=== PATIENT | female | born 1950 ===

== ENCOUNTER 2016-12-23 09:20 | Emergency (ER) | payer MEDICARE ==
[2016-12-23 09:30] VITALS: BP 127/64; RESP 17; TEMP 98.4; O2SAT 100; BMI 31.1
[2016-12-23] MEDS ORDERED: HYDROmorphone 0.5 mg/0.5 ml ISec IVP STA (10:15)
[2016-12-23 11:02] LABS: BASO % 0.3 % (0.0-2.0); EOS # 0.1 K/uL (0.0-0.7); EOS % 1.5 % (0.0-4.0); HEMATOCRIT 38.4 % (34.0-47.0); LYMPH # 1.5 K/uL (1.0-4.3); MEAN CELL VOLUME 87.2 fl (81.0-99.0); MEAN CORPUSCULAR HEMOGLOBIN 28.9 pg (27.0-31.0); MEAN CORPUSCULAR HGB CONC 33.1 g/dL (33.0-37.0); MONO # 0.5 K/uL (0.0-0.8); MONO % 7.1 % (0.0-10.0); NEUT # 5.5 K/uL (1.8-7.0); NEUT % 71.1 % (50.0-75.0); RED CELL DISTRIBUTION WIDTH 14.5 % (11.5-14.5); WHITE BLOOD COUNT 7.7 K/uL (4.8-10.8)
[2016-12-23 11:22] LABS: ALB/GLOB RATIO 1.3 (1.0-2.1); ALKALINE PHOSPHATASE 89 U/L (38-126); ALT/SGPT 39 U/L (9-52); AST/SGOT 29 U/L (14-36); BILIRUBIN,TOTAL 0.3 mg/dl (0.2-1.3); BLOOD UREA NITROGEN 27 mg/dl (7-17); CALCIUM 8.8 mg/dL (8.4-10.2); CARBON DIOXIDE 28 mmol/L (22-30); CHLORIDE 106 mmol/L (98-107); GFR AFRICAN-AMERICAN > 60; GLUCOSE,RANDOM 74 mg/dL (65-105); LIPASE 82 U/L (23-300); POTASSIUM 3.9 MMOL/L (3.6-5.0); SODIUM 145 mmol/l (132-148); TOTAL PROTEIN 7.4 G/DL (6.3-8.2)
[2016-12-23] MEDS ORDERED: Iodixanol 320 MG/ML 100 ML BOTTLE IV ONE (11:34)
[2016-12-23] MEDS ORDERED: Sodium Chloride 0.9% 50 ML IV ONE (11:35)
--- NOTE | 2016-12-23 12:45 | CT ---
PROCEDURE: CT Angiography Chest, Abdomen and Pelvis with and without intravenous contrast HISTORY: abd pain radiating to back, discoloration legs COMPARISON: None. TECHNIQUE: Contiguous axial images of the chest, abdomen and pelvis were obtained in the phase of aortic enhancement. A noncontrast enhanced CT of the chest was also obtained to evaluate for possible intramural thrombus. Coronal and sagittal reformats were generated. IV dose administered: 99 mL Visipaque 320 Radiation dose: Total exam DLP = 2190.89 mGy-cm. This CT exam was performed using one or more of the following dose reduction techniques: Automated exposure control, adjustment of the mA and/or kV according to patient size, and/or use of iterative reconstruction technique. FINDINGS: CT ANGIOGRAPHY OF THE CHEST WITH & WITHOUT CONTRAST: AORTA (CHEST AND ABDOMEN): The thoracic and abdominal aorta are unremarkable, without aneurysm, dissection or rupture. No intramural thrombus identified in the thoracic aorta on the non-contrast ct of the chest. The celiac axis is widely patent. There is calcified plaque at the origin of the celiac axis. There is minimal stenosis of the proximal superior mesenteric artery, just distal to the origin. There is no stenosis of the inferior mesenteric artery. There is focal short segment stenosis of the proximal right renal artery by approximately 60 percent, most likely due to atheromatous thrombus. The left renal artery is widely patent. The pelvic arteries are unremarkable. LUNGS: Clear. No nodule, mass or consolidation. MEDIASTINUM: Unremarkable. Normal caliber aorta and pulmonary arterial trunk. No aortic dissection. Normal size heart. LYMPH NODES: Unremarkable. PLEURA: Unremarkable. No pneumothorax. No pleural fluid. BONES: Unremarkable. OTHER FINDINGS: None. CT ANGIOGRAPHY OF THE ABDOMEN AND PELVIS WITH CONTRAST: LIVER: Unremarkable. No gross lesion or ductal dilatation. GALLBLADDER AND BILE DUCTS: Unremarkable. PANCREAS: Unremarkable. No gross lesion or ductal dilatation. SPLEEN: Unremarkable. ADRENALS: Unremarkable. No mass. KIDNEYS AND URETERS: Unremarkable. No hydronephrosis. No solid mass. VASCULATURE: Unremarkable. No aortic aneurysm. STOMACH AND BOWEL: Mild sigmoid diverticulosis without diverticulitis. No other abnormal bowel loops are appreciated. No bowel obstruction. Small hiatal hernia noted. The stomach is otherwise normal in appearance. APPENDIX: Normal appendix. PERITONEUM: Unremarkable. No free fluid. No free air. LYMPH NODES: Unremarkable. No enlarged lymph nodes. BLADDER: Unremarkable. REPRODUCTIVE: Status post hysterectomy. BONES: No acute fracture. OTHER FINDINGS: None. IMPRESSION: No evidence of thoracic or abdominal aortic dissection or aneurysm. Stenosis of the proximal right renal artery as described. No other acute abnormality is identified.
--- NOTE | 2016-12-23 13:24 | ED PDOC ---
HPI: General Adult Time Seen by Provider: 12/23/16 09:45 Chief Complaint (Nursing): Lower Extremity Problem/Injury Chief Complaint (Provider): abdominal pain, back pain, leg swelling History Per: Patient, Family, Product Safety Associate History/Exam Limitations: no limitations Onset/Duration Of Symptoms: Days (2), Gradual Current Symptoms Are (Timing): Still Present Recently: Treated By A Physician (ortho Dr Santamaria) Additional Complaint(s): 66yo female c/o multiple issues- back and abdominal pain (left sided) associated with lower extremity pains and edema. Recommended by her orthopedist to see MD for r/o CHF due to edema. She denies chest pain, SOB, syncope or fever. She states shes noticed discoloration to her legs over last several weeks but denies numbness or focal weakness/ paresthesias. PMD Nasreen- saw patient in ED. Past Medical History Reviewed: Historical Data, Nursing Documentation, Vital Signs Vital Signs: Last Vital Signs Temp 98.4 F 12/23/16 09:29 Pulse 79 12/23/16 13:28 Resp 17 12/23/16 09:29 BP 127/64 12/23/16 09:29 Pulse Ox 100 12/23/16 13:28 - Medical History PMH: Arthritis, Depression (NOT TAKING MEDICINE), HTN, Osteoporosis Denies: Chronic Kidney Disease - Surgical History Surgical History: Endoscopy Other surgeries: b/l knee replacements last 4 mos ago, no longer on AC - Family History Family History: States: Unknown Family Hx - Living Arrangements Living Arrangements: With Family - Social History Current smoker - smoking cessation education provided: No - Immunization History Hx Tetanus Toxoid Vaccination: No Hx Influenza Vaccination: Yes Hx Pneumococcal Vaccination: No - Home Medications Home Medications: Ambulatory Orders Medication Instructions Recorded Naproxen [Naprosyn] 500 mg PO BID PRN #14 tablet 12/23/16 traMADol [Ultram] 50 mg PO TID PRN #12 tab 12/23/16 - Allergies Allergies/Adverse Reactions: Allergies Allergy/AdvReac Type Severity Reaction Status Date / Time No Known Allergies Allergy Verified 09/25/15 09:17 Review of Systems ROS Statement: Except As Marked, All Systems Reviewed And Found Negative Constitutional: Negative for: Fever, Chills Cardiovascular: Negative for: Chest Pain Respiratory: Negative for: Cough, Shortness of Breath, Hemoptysis Gastrointestinal: Positive for: Abdominal Pain. Negative for: Nausea, Vomiting , Diarrhea Genitourinary Female: Negative for: Dysuria Musculoskeletal: Positive for: Back Pain, Leg Pain, Foot Pain. Negative for: Neck Pain, Hand Pain Skin: Negative for: Rash, Lesions Neurological: Negative for: Weakness, Numbness, Headache, Dizziness Physical Exam - Reviewed Nursing Documentation Reviewed: Yes Vital Signs Reviewed: Yes - Physical Exam Appears: Positive for: Well, Non-toxic, No Acute Distress Head Exam: Positive for: ATRAUMATIC, NORMAL INSPECTION, NORMOCEPHALIC Skin: Positive for: Normal Color, Warm, DRY Eye Exam: Positive for: EOMI, Normal appearance, PERRL ENT: Positive for: Normal ENT Inspection Neck: Positive for: Normal, Painless ROM Cardiovascular/Chest: Positive for: Regular Rate, Rhythm Respiratory: Positive for: CNT, Normal Breath Sounds Pulses-Dorsalis Pedis (L): 2+ Pulses-Dorsalis Pedis (R): 1+ Gastrointestinal/Abdominal: Positive for: Bowel Sounds, Soft, Tenderness (mild L abdominal tenderness; no ecchymosis). Negative for: Guarding, Rebound Back: Positive for: Normal Inspection Extremity: Positive for: Normal ROM, Pedal Edema (2+ pitting b/l), Other (feet chronic appearing venous changes). Negative for: Calf Tenderness Neurologic/Psych: Positive for: Alert, inspector balance truing II-XII (intact), Oriented. Negative for: Motor/Sensory Deficits - Laboratory Results Result Diagrams: 12/23/16 10:00 12/23/16 10:00 - ECG ECG: Positive for: Interpreted By [facility] ECG Rhythm: Positive for: Normal QRS, Normal ST Segment, Sinus Rhythm, Nonspecific Changes Rate: 79 O2 Sat by Pulse Oximetry: 100 Pulse Ox Interpretation: Normal - CT Scan/US CTA chest/abd pelv Other Rad Studies (CT/US): Read By Radiologist, Radiology Report Reviewed (neg for dissection ) Medical Decision Making Medical Decision Making: bloodwork and EKG ordered Will obtain CTA chest/abd pelv to r/o vascular abnormality given abd pain and c/ o lower extremity changes bloodwork reviewed and unremarkable CTA; Accession No. : [id number] Patient Name / ID : GONZÁLEZ GARCIA / [id number] Exam Date : 12/23/2016 11:36:32 ( Addendum_Approved ) Study Comment : Sex / Age : F / 66Y Creator : Moose Drake MD Dictator : Moose Drake MD Military Technician : Cuff Turner : Moose Drake MD Approver2 : Report Date : 12/23/2016 12:44:04 My Comment : ADDENDUM: Addendum dictation: Incidental note is made of a hemangioma of the T5 vertebra, of no probable clinical significance. [ Addendum Report Added by Moose Drake MD at 12/23/2016 13:01:53 ] PROCEDURE: CT Angiography Chest, Abdomen and Pelvis with and without intravenous contrast HISTORY: abd pain radiating to back, discoloration legs COMPARISON: None. TECHNIQUE: Contiguous axial images of the chest, abdomen and pelvis were obtained in the phase of aortic enhancement. A noncontrast enhanced CT of the chest was also obtained to evaluate for possible intramural thrombus. Coronal and sagittal reformats were generated. IV dose administered: 99 mL Visipaque 320 Radiation dose: Total exam DLP = 2190.89 mGy-cm. This CT exam was performed using one or more of the following dose reduction techniques: Automated exposure control, adjustment of the mA and/or kV according to patient size, and/or use of iterative reconstruction technique. FINDINGS: CT ANGIOGRAPHY OF THE CHEST WITH & WITHOUT CONTRAST: AORTA (CHEST AND ABDOMEN): The thoracic and abdominal aorta are unremarkable, without aneurysm, dissection or rupture. No intramural thrombus identified in the thoracic aorta on the non-contrast ct of the chest. The celiac axis is widely patent. There is calcified plaque at the origin of the celiac axis. There is minimal stenosis of the proximal superior mesenteric artery, just distal to the origin. There is no stenosis of the inferior mesenteric artery. There is focal short segment stenosis of the proximal right renal artery by approximately 60 percent, most likely due to atheromatous thrombus. The left renal artery is widely patent. The pelvic arteries are unremarkable. LUNGS: Clear. No nodule, mass or consolidation. MEDIASTINUM: Unremarkable. Normal caliber aorta and pulmonary arterial trunk. No aortic dissection. Normal size heart. LYMPH NODES: Unremarkable. PLEURA: Unremarkable. No pneumothorax. No pleural fluid. BONES: Unremarkable. OTHER FINDINGS: None. CT ANGIOGRAPHY OF THE ABDOMEN AND PELVIS WITH CONTRAST: LIVER: Unremarkable. No gross lesion or ductal dilatation. GALLBLADDER AND BILE DUCTS: Unremarkable. PANCREAS: Unremarkable. No gross lesion or ductal dilatation. SPLEEN: Unremarkable. ADRENALS: Unremarkable. No mass. KIDNEYS AND URETERS: Unremarkable. No hydronephrosis. No solid mass. VASCULATURE: Unremarkable. No aortic aneurysm. STOMACH AND BOWEL: Mild sigmoid diverticulosis without diverticulitis. No other abnormal bowel loops are appreciated. No bowel obstruction. Small hiatal hernia noted. The stomach is otherwise normal in appearance. APPENDIX: Normal appendix. PERITONEUM: Unremarkable. No free fluid. No free air. LYMPH NODES: Unremarkable. No enlarged lymph nodes. BLADDER: Unremarkable. REPRODUCTIVE: Status post hysterectomy. BONES: No acute fracture. OTHER FINDINGS: None. IMPRESSION: No evidence of thoracic or abdominal aortic dissection or aneurysm. Stenosis of the proximal right renal artery as described. No other acute abnormality is identified. Rediscussed w Dr Downey. Followup in office On re-eval back pain is improved. Oral hydration w water recommended x48hr Disposition - Clinical Impression Clinical Impression: Back pain, Abdominal pain, Leg edema - Patient ED Disposition Is Patient to be Admitted: No Counseled Patient/Family Regarding: Studies Performed, Diagnosis, Need For Followup - Disposition Referrals: Tramaine Downey MD [Primary Care Provider] - Disposition: Routine/Home Disposition Time: 14:05 Condition: IMPROVED Additional Instructions: Followup with Dr Downey tomorrow for further testing of possible renal artery stenosis Take pain medication as prescribed Return to ER for any worse or new symptoms Have urine retested in one week to assure clearance of microscopic hematuria Prescriptions: Naproxen [Naprosyn] 500 mg PO BID PRN #14 tablet PRN Reason: Pain, Moderate (4-7) traMADol [Ultram] 50 mg PO TID PRN #12 tab PRN Reason: Pain, Moderate (4-7) Instructions: Acute Hematuria (ED), Acute Abdominal Pain (ED), Acute Low Back Pain (ED), Leg Edema (ED) Forms: [employer] ([place]) Print Language: POLISH
[2016-12-23 13:27] VITALS: PULSE 79
[2016-12-23 13:29] LABS: RBC URINE 7 /hpf (0-3); URINE BACTERIA RARE (<OCC); URINE BILIRUBIN NEGATIVE (NEGATIVE); URINE BLOOD NEGATIVE (NEGATIVE); URINE COLOR YELLOW (YELLOW); URINE GLUCOSE (UA) NEG (Normal); URINE KETONE NEGATIVE (NEGATIVE); URINE LEUKOCYTE ESTERASE NEG Leu/uL (Negative); URINE PROTEIN NEGATIVE (NEGATIVE); URINE UROBILINOGEN 0.2-1.0 mg/dL (0.2-1.0); WBC URINE 6 /hpf (0-5)
[2016-12-23] MEDS ORDERED: Lidocaine 5% Patch TD STA (14:02)
[2016-12-23] MEDS ORDERED: Lidocaine 5% Patch TD ONE (14:18)
--- NOTE | 2016-12-23 14:31 | RAD ---
HISTORY: SOB COMPARISON: 10/08/2009. FINDINGS: LUNGS: No active pulmonary disease. PLEURA: No significant pleural effusion identified, no pneumothorax apparent. CARDIOVASCULAR: No radiographic findings to suggest acute or significant cardiovascular disease. OSSEOUS STRUCTURES: No significant abnormalities. VISUALIZED UPPER ABDOMEN: Normal. OTHER FINDINGS: None. IMPRESSION: No active disease. No significant interval change compared to the prior examination(s).
--- NOTE | 2016-12-24 08:30 | CARD ---
APPROVED REPORT EKG Measurement Heart [id number] <Conclusion> Normal sinus rhythm Normal ECG
== END 2016-12-23 14:36 | disposition home or self-care (01) ==
LOC: H.ER 09:20
DX: R60.0 Localized edema (principal); M54.9 Dorsalgia, unspecified; Z86.59 Personal history of other mental and behavioral disorders
CPT/HCPCS: 71010; 71275; 74175; 80053; 81003; 83690; 83880; 84484; 85025; 85610; 85730; 93005; 96374; 96375; 96376; 99284; J1170; J1885; Q9967